=== PATIENT | male | born 1945 | race Caucasian/White ===

== ENCOUNTER 2016-08-21 08:09 | Day surgery (SDC) | payer BC, MEDICARE, OTHER ==
[2016-08-21] MEDS ORDERED: Sodium Chloride 0.9% 1,000 ML IV SCH (09:00)
[2016-08-21] MEDS ORDERED: Propofol 200 MG/20 ML SDV ONE (09:23)
[2016-08-21] MEDS ORDERED: Midazolam 1 MG/ML 2 ML SDV ONE (09:23)
[2016-08-21] MEDS ORDERED: fentaNYL 100 MCG/2 ML SDV ONE (09:23)
[2016-08-21 11:26] VITALS: BP 131/71
--- NOTE | 2016-08-21 11:44 | OR ---
DATE OF PROCEDURE: 08/21/2016 PROCEDURE: Colonoscopy. FINDINGS: 1. Significant narrowing of the anastomosis at the previous colon resection. 2. Rectal polyp. COMPLICATION: None. CUSTOMER AGENT: None. ANESTHESIA: MAC. RISKS: Risks, benefits, alternatives, limitations including, but not limited to infection, bleeding, and perforation were explained to the patient. SIGNIFICANT FINDINGS: Narrowing of the previous anastomotic site with an inability to advance the scope past this is due to narrowing. PROCEDURE IN DETAIL: The patient was placed in left lateral decubitus position. Digital rectal exam was performed without abnormality. The scope was introduced and advanced. The patient was noted that the previous anastomotic site to have stricturing or narrowing of the anastomotic site. This was biopsied x6. The scope was unable to be advanced through this due to concern of perforation. This did not appear to be a functioning obstruction as there was no stool noted proximal to the anastomosis. The scope was brought back and retroflexed in the rectum. There was a 5 mm polyp which was identified and completely removed. The patient and I will have a discussion about stenting versus observation of this once he awakes from anesthesia. Aleksandr Kaminski MD /[id number]
== END 2016-08-21 11:15 | disposition home or self-care (01) ==
LOC: JP.SDS 08:09
PROVIDERS: ATTEND Surgery
DX: Z12.11 Encounter for screening for malignant neoplasm of colon (principal); K52.9 Noninfective gastroenteritis and colitis, unspecified; K62.1 Rectal polyp; I25.10 Atherosclerotic heart disease of native coronary artery without angina pectoris; K21.9 Gastro-esophageal reflux disease without esophagitis; Z90.49 Acquired absence of other specified parts of digestive tract; Z95.1 Presence of aortocoronary bypass graft; Z79.899 Other long term (current) drug therapy; Z88.8 Allergy status to other drugs, medicaments and biological substances; Z88.5 Allergy status to narcotic agent
CPT/HCPCS: 45380; 88305; J2250; J2704; J3010; J7040

== ENCOUNTER 2016-09-03 03:57 | Inpatient (IN) | payer MEDICARE, BC ==
[2016-09-03] MEDS ORDERED: HYDROmorphone 0.5 MG/0.5 ML Syringe IVPUSH ONE ×2 (04:31→05:00)
--- NOTE | 2016-09-03 04:39 | EDM.PDOC ---
<Obed Orellana - Last Filed: 09/03/16 06:26> ED HPI GENERAL MEDICAL PROBLEM - General Chief Complaint: Abdominal Pain Stated Complaint: ABD PAIN Time Seen by Provider: 09/03/16 04:15 Source of Information: Reports: Patient, Family History Limitations: Reports: No Limitations - History of Present Illness INITIAL COMMENTS - FREE TEXT/NARRATIVE: 71-year-old male with a history of a partial colectomy due to an intra- abdominal abscess has developed sharp cramping abdominal pain over the last 24 hours. He had 4 hours of pain last night that seemed to resolve but then it returned and woke him up at 3:00 AM. No nausea or vomiting. Most of the pain is across the upper abdomen, at times in the right lower quadrant and at times felt like across the back. He feels like his abdomen is somewhat distended. No chest pain or shortness of breath. He had a colonoscopy earlier this year and the surgeon was unable to complete the scoping because of a narrowing at the anastomosis Location: Reports: Abdomen Quality: Reports: Pressure, Sharp Severity: Moderate Improves with: Reports: None Worsens with: Reports: None Associated Symptoms: Denies: Confusion, Chest Pain, Fever/Chills, Shortness of Breath, Weakness abdominal pain Pain Score (Numeric/FACES): 10 - Related Data Allergies Allergy/AdvReac Type Severity Reaction Status Date / Time Iodinated Contrast Media - Allergy Severe Syncope Verified 09/03/16 05:27 Oral and [Iodinated Contrast Media - IV Dye] codeine Allergy Intermediate Abdominal Verified 09/03/16 05:27 Pain atorvastatin [From Lipitor] Allergy Cannot Verified 09/03/16 05:27 Remember simvastatin Allergy Cannot Verified 09/03/16 05:27 Remember Home Meds: Home Meds Metoprolol Tartrate 50 mg PO DAILY 05/01/13 [History] Ranitidine HCl [Zantac] 150 mg PO BID 05/01/13 [History] Tamsulosin [Tamsulosin 24 Hr] 0.4 mg PO BID 05/01/13 [History] cycloSPORINE [Restasis] 1 each EYEBOTH BID 05/01/13 [History] Aspirin [Adult Low Dose Aspirin EC] 81 mg PO DAILY 08/20/16 [History] Ibuprofen 200 mg PO Q6HR PRN 08/20/16 [History] Rosuvastatin Calcium 40 mg PO DAILY 08/20/16 [History] Ubidecarenone [Coenzyme Q-10] 200 mg PO DAILY 08/20/16 [History] Past Medical History HEENT History: Reports: Cataract, Hard of Hearing, Impaired Vision, Other (See Below) Other HEENT History: Severe dye eye syndrome Cardiovascular History: Reports: Aneurysm, Bypass, CAD, Heart Murmur, High Cholesterol, Hypertension Gastrointestinal History: Reports: GERD, Hemorrhoids Genitourinary History: Reports: BPH Musculoskeletal History: Reports: Back Pain, Chronic, Osteoarthritis Neurological History: Reports: Concussion, Headaches, Chronic - Infectious Disease History Infectious Disease History: Reports: Chicken Pox, Measles - Past Surgical History HEENT Surgical History: Reports: Cataract Surgery, Tonsillectomy Cardiovascular Surgical History: Reports: Aneurysm, Coronary Artery Bypass GI Surgical History: Reports: Colonoscopy, EGD, Hernia, Inguinal, Other (See Below) Other GI Surgeries/Procedures: bowel removed due to abscess Male Surgical History: Reports: None Social & Family History - Tobacco Use Smoking Status *Q: Never Smoker Years of Tobacco use: 15 Packs/Tins Daily: 1 Used Tobacco, but Quit: Yes Month Tobacco Last Used: 2001 Second Hand Smoke Exposure: No - Caffeine Use Caffeine Use: Reports: Coffee, Soda - Alcohol Use Days Per Week of Alcohol Use: 0 - Recreational Drug Use Recreational Drug Use: No ED ROS GENERAL - Review of Systems Review Of Systems: See Below Constitutional: Denies: Fever, Chills Respiratory: Denies: Shortness of Breath, Cough Cardiovascular: Denies: Chest Pain GI/Abdominal: Reports: Abdominal Pain, Nausea. Denies: Diarrhea, Vomiting : Reports: No Symptoms Skin: Reports: No Symptoms Neurological: Reports: No Symptoms Psychiatric: Reports: Anxiety ED EXAM, GI/ABD - Physical Exam Exam: See Below Exam Limited By: No Limitations General Appearance: Alert, Anxious, Moderate Distress Eyes: Bilateral: Normal Appearance (No jaundice) Respiratory/Chest: No Respiratory Distress, Lungs Clear Cardiovascular: Regular Rate, Rhythm GI/Abdominal: Normal Bowel Sounds (Bowel sounds are present and sound normal), Guarding (He is guarding in the right lower quadrant) Extremities: Normal Inspection (There may be just a trace of lower extremity edema, symmetric) Neurological: Alert, Oriented Psychiatric: Anxious Skin Exam: Warm, Dry Course - Vital Signs Last Recorded V/S: Last Vital Signs Temp 97.2 F 09/03/16 06:22 Pulse 59 L 09/03/16 06:22 Resp 17 09/03/16 06:22 BP 169/66 H 09/03/16 06:22 Pulse Ox 94 L 09/03/16 06:22 - Orders/Labs/Meds Orders: Active Orders 24 hr Category Date Time Status Abdomen Ltd [US] Stat Exams 09/03/16 06:28 Ordered Abdomen Pelvis wo Cont [CT] Stat Exams 09/03/16 04:32 Taken Ampicillin/Sulbactam Na [Unasyn] 3 gm Med 09/03/16 07:53 Ordered Sodium Chloride 0.9% [Normal Saline] 100 ml IV ONETIME Sodium Chloride 0.9% [Normal Saline] 1,000 ml Med 09/03/16 04:45 Active IV ASDIRECTED Medication Orders Sodium Chloride (Normal Saline) 1,000 mls @ 250 mls/hr IV ASDIRECTED RHETT Last Admin: 09/03/16 04:37 Dose: 250 mls/hr Ampicillin Sodium/Sulbactam (Sodium 3 gm/ Sodium Chloride) 100 mls @ 200 mls/ hr IV ONETIME ONE Stop: 09/03/16 08:22 Labs: Laboratory Tests 09/03/16 09/03/16 Range/Units 04:20 04:20 WBC 9.8 (4.5-11.0) K/uL RBC 5.35 (4.30-5.90) M/uL Hgb 15.9 H D (12.0-15.0) g/dL Hct 46.3 (40.0-54.0) % MCV 87 (80-98) fL MCH 30 (27-31) pg MCHC 34 (32-36) % Plt Count 196 (150-400) K/uL Neut % (Auto) 69 H (36-66) % Lymph % (Auto) 21 L (24-44) % Jewell % (Auto) 8 H (2-6) % Eos % (Auto) 1 L (2-4) % Baso % (Auto) 1 (0-1) % Sodium 140 (140-148) mmol/L Potassium 4.1 (3.6-5.2) mmol/L Chloride 105 (100-108) mmol/L Carbon Dioxide 23 (21-32) mmol/L Anion Gap 11.6 (5.0-14.0) mmol/L BUN 18 D (7-18) mg/dL Creatinine 1.0 (0.8-1.3) mg/dL Est Cr Clr Drug Dosing 68.94 mL/min Estimated GFR (MDRD) > 60 (>60) Glucose 135 H (74-106) mg/dL Calcium 8.5 (8.5-10.1) mg/dL Total Bilirubin 0.5 (0.2-1.0) mg/dL AST 22 (15-37) U/L ALT 35 (12-78) U/L Alkaline Phosphatase 70 (46-116) U/L Total Protein 7.1 (6.4-8.2) g/dL Albumin 3.5 (3.4-5.0) g/dL Globulin 3.6 H (2.3-3.5) g/dL Albumin/Globulin Ratio 1.0 L (1.2-2.2) Amylase 86 (25-115) U/L Lipase 150 (73-393) U/L Meds: Medications Generic Name Dose Route Start Last Admin Trade Name Freq PRN Reason Stop Dose Admin Sodium Chloride 1,000 mls @ 250 mls/hr 09/03/16 04:45 09/03/16 04:37 Normal Saline IV 250 mls/hr ASDIRECTED RHETT Administration Ampicillin Sodium/Sulbactam 100 mls @ 200 mls/hr 09/03/16 07:53 Sodium 3 gm/ Sodium Chloride IV 09/03/16 08:22 ONETIME ONE Discontinued Medications Generic Name Dose Route Start Last Admin Trade Name Freq PRN Reason Stop Dose Admin Hydromorphone HCl 0.5 mg 09/03/16 04:31 09/03/16 04:40 Dilaudid IVPUSH 09/03/16 04:32 0.5 mg ONETIME ONE Administration Hydromorphone HCl 0.5 mg 09/03/16 05:00 09/03/16 05:08 Dilaudid IVPUSH 09/03/16 05:01 0.5 mg ONETIME ONE Administration Hydromorphone HCl 1 mg 09/03/16 07:04 09/03/16 07:08 Dilaudid IVPUSH 09/03/16 07:05 1 mg ONETIME ONE Administration Ondansetron HCl 4 mg 09/03/16 05:01 09/03/16 05:05 Zofran IVPUSH 09/03/16 05:02 4 mg ONETIME ONE Administration - Re-Assessments/Exams Free Text/Narrative Re-Assessment/Exam: 09/03/16 04:38 An IV was started and the patient was given 0.5 mg of Dilaudid. A CBC, CMP, amylase and lipase were obtained and the patient was put through a CT of the abdomen and pelvis with no contrast because of his allergy. 09/03/16 06:02 Labs were reassuring, a second 0.5 mg of Dilaudid was needed for pain control. CT scan confirmed a dilated cecum which correlates with his pain and also a partially calcified gallbladder stone. Dr. Abebe was consulted to review the CT scan and the patient's surgical history to consider a partial bowel obstruction of the colon. 09/03/16 06:26 A gallbladder ultrasound will be obtained prior to making a decision on treatment. Care was turned over to Dr. Montana pending result. Departure - Departure Disposition: Admitted As Inpatient 65 Clinical Impression: Cholecystitis - Discharge Information Forms: ED Department Discharge - My Orders Last 24 Hours: My Active Orders 09/03/16 07:53 Ampicillin/Sulbactam Na [Unasyn] 3 gm Sodium Chloride 0.9% [Normal Saline] 100 ml IV ONETIME - Assessment/Plan Last 24 Hours: My Active Orders 09/03/16 07:53 Ampicillin/Sulbactam Na [Unasyn] 3 gm Sodium Chloride 0.9% [Normal Saline] 100 ml IV ONETIME <Loy Montana - Last Filed: 09/03/16 08:04> Departure - Departure Time of Disposition: 08:04 Condition: good - Assessment/Plan Plan: Assessment Acuity = acute Site and laterality = acute cholecystitis complicated patient with known history of hypertension dyslipidemia Etiology = secondary to a gallstone in the neck of the gallbladder Manifestations = pain Location of injury = home Lab values = CBC, CMP unremarkable CT scan did demonstrate a stone in the neck of the gallbladder as well as dilated cecum followup ultrasound showed enlarged gallbladder 11 mm with a wall thickness of 4.3 mm positive Montaño's sign and stone in the neck of the gallbladder Plan Discuss case Dr. Abebe general surgery he agreed to evaluate the patient in the emergency department for admission Patient was in agreement with the plan all questions were answered, This note was dictated using [employer] voice recognition software please call with any questions.
[2016-09-03] MEDS ORDERED: Sodium Chloride 0.9% 1,000 ML IV SCH (04:45)
[2016-09-03] MEDS ORDERED: Ondansetron 4 MG/2 ML SDV IVPUSH ONE (05:01)
[2016-09-03] MEDS ORDERED: HYDROmorphone 1 MG/ML Syringe IVPUSH ONE (07:04)
[2016-09-03] MEDS ORDERED: Ampicillin/Sulbactam Na 3 GM in Sodium Chloride 0.9% 100 ML IV ONE (07:53)
--- NOTE | 2016-09-03 08:38 | US ---
Abdomen Ltd HISTORY: abdominal pain FINDINGS: The liver appears within normal limits in size and echogenicity with no focal parenchymal abnormalit y identified. There is limited visualization left lobe of the liver. Gallbladder measures 11.5 cm in length. There is an approximately 1 cm diameter echogenic also in the neck of the gallbladder. This does not move with change in patient position. Sonographic Montaño sign is positive. The patient is tender to palpation of the gallbladder. Gallbladder wall is mildly thickened measuring 4.3 mm. No pe richolecystic fluid is seen. Common bile duct is borderline prominent measuring 7.4 mm in diameter. The pancreas is obscured by bowel gas and could not be imaged. Right kidney is within normal limits in size and echogenicity with no mass or hydronephrosis. The right kidney measures 11.2 cm in length . There is an anechoic cyst mid right kidney measuring 1 cm in diameter. Inferior vena cava is obscu red by bowel gas. Normal hepatopedal flow is seen in the portal vein. IMPRESSION: 1. Cholelithiasis. A single gallstone can be seen in the neck of the gallbladder. Gallbladder wall i s mildly thickened and sonographic Montaño sign is positive. Recommend clinical correlation for signs of acute cholecystitis. Common bile duct is mildly dilated measuring 7.4 mm in diameter. 2. No other sonographic abnormality of the right upper quadrant is identified. Small right renal cys t is noted. Pancreas, inferior vena cava, and portions of the left lobe of the liver are obscured by bowel gas.
[2016-09-03] MEDS ORDERED: HYDROmorphone/Normal Saline 15 MG/30 ML PCA IV PRN (09:05)
[2016-09-03] MEDS ORDERED: Naloxone 0.4 MG/ML SDV IV PRN (09:05)
[2016-09-03] MEDS ORDERED: Ondansetron 4 MG/2 ML SDV IVPUSH PRN (09:09)
[2016-09-03] MEDS: Pantoprazole 40 MG Vial IV SCH (10:47)
[2016-09-03] MEDS: Ampicillin/Sulbactam Na 3 GM in Sodium Chloride 0.9% 100 ML IV SCH ×2 (14:05→20:08)
[2016-09-03] MEDS: Dextrose 5%-Lactated Ringers 1,000 ML IV SCH (19:43)
[2016-09-03] MEDS: cycloSPORINE Ophth Drops U/D Box of 30 EYEBOTH SCH (20:21)
[2016-09-03] MEDS: Tamsulosin 0.4 MG Cap.ER PO SCH (20:21)
[2016-09-04] MEDS: Ampicillin/Sulbactam Na 3 GM in Sodium Chloride 0.9% 100 ML IV SCH ×4 (02:04→20:25)
[2016-09-04] MEDS ORDERED: Bupivacaine 0.5%/EPINEPHrine 1:200,000 50 ML MDV ONE (06:50)
[2016-09-04] MEDS: Dextrose 5%-Lactated Ringers 1,000 ML IV SCH ×3 (07:10→20:25)
[2016-09-04] MEDS ORDERED: Propofol 200 MG/20 ML SDV ONE (07:13)
[2016-09-04] MEDS ORDERED: Ondansetron 4 MG/2 ML SDV ONE (07:13)
[2016-09-04] MEDS ORDERED: Rocuronium 50 MG/5 ML Vial ONE (07:13)
[2016-09-04] MEDS ORDERED: Succinylcholine/Normal Saline 200 MG/10 ML Syringe ONE (07:13)
[2016-09-04] MEDS ORDERED: Neostigmine Methylsulfate 1 MG/ML 5 ML Syringe ONE (07:13)
[2016-09-04] MEDS ORDERED: fentaNYL 250 MCG/5 ML SDV ONE (07:13)
[2016-09-04] MEDS ORDERED: Dexamethasone 4 MG/ML SDV ONE (07:13)
[2016-09-04] MEDS ORDERED: Metoprolol Tartrate 50 MG Tab PO SCH (09:00)
[2016-09-04] MEDS: cycloSPORINE Ophth Drops U/D Box of 30 EYEBOTH SCH ×2 (10:47→21:40)
[2016-09-04] MEDS: Pantoprazole 40 MG Vial IV SCH (10:52)
--- NOTE | 2016-09-04 11:54 | PN ---
DATE OF SERVICE: 09/04/2016 SUBJECTIVE: Aleksandr is n.p.o. He will be having a laparoscopic cholecystectomy around 8 o'clock this morning. He has no questions. His consents are signed. 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 OBJECTIVE: GENERAL: Aleksandr Grey is a 71-year-old male. He is alert and orientated. VITAL SIGNS: TPR is 99.9, 74, 16. Blood pressure is 154/68. HEENT: Negative. NECK: Supple. HEART: Regular rate and rhythm. LUNGS: Clear. ABDOMEN: Tenderness in the right upper quadrant to palpation. EXTREMITIES: SCDs are on and there is no peripheral edema. ASSESSMENT: Acute cholecystitis. PLAN: Orders to be written postoperatively. Janet Clemente PA-C /[id number]
[2016-09-04] MEDS: Magnesium Sulfate/Water 2 GM in Premix Bag 1 BAG IV SCH ×2 (16:37→21:42)
[2016-09-04] MEDS: Acetaminophen/HYDROcodone 325-5 MG Tab PO PRN ×2 (16:50→21:39)
[2016-09-04] MEDS ORDERED: Lidocaine 2% Jelly 10 ML Urojet MUCMEM ONE (18:48)
[2016-09-04] MEDS ORDERED: Lidocaine 2% Jelly 10 ML Urojet ONE (18:48)
[2016-09-04] MEDS: Tamsulosin 0.4 MG Cap.ER PO SCH (21:40)
[2016-09-05] MEDS: Ampicillin/Sulbactam Na 3 GM in Sodium Chloride 0.9% 100 ML IV SCH ×4 (02:42→19:56)
[2016-09-05] MEDS: Acetaminophen/HYDROcodone 325-5 MG Tab PO PRN ×5 (02:51→23:30)
[2016-09-05] MEDS: Magnesium Sulfate/Water 2 GM in Premix Bag 1 BAG IV SCH ×4 (02:54→21:05)
--- NOTE | 2016-09-05 08:44 | PN ---
DATE OF SERVICE: 09/05/2016 SUBJECTIVE: Aleksandr is postop day #1. He states his pain is controlled. He did have difficulty urinating last night and had a Bullock catheter placed in. KAY drain put out 90 mL of a pink serosanguineous drainage. REVIEW OF SYSTEMS: Remainder of review of systems negative for any pertinent positives and negatives. OBJECTIVE: GENERAL: Aleksandr Grey is a 71-year-old male. Alert and orientated. SKIN: Warm and dry. Color is good. VITAL SIGNS: TPR 97, 56, 16, blood pressure 129/65. HEENT: Negative. NECK: Supple. HEART: Regular rate and rhythm. LUNGS: Clear. ABDOMEN: Dressings dry and intact. Abdominal binder is on. KAY drain intact and draining a light pink serous drainage. EXTREMITIES: SCDs are on and no peripheral edema. ASSESSMENT: Laparoscopic cholecystectomy, drainage of abscess, and excision of peritoneal nodule for acute cholecystitis with pericholecystic abscess, and peritoneal nodule. Date of surgery, 09/04/2016. PLAN: 1. Increase Flomax 0.4 mg to b.i.d. 2. Discontinue Bullock in a.m., 09/06/2016, at 0500 hours. 3. Crestor (rosuvastatin calcium) 40 mg p.o. daily. 4. Good pulmonary toilet encouraged. 5. We will evaluate p.r.n. or in a.m. Janet Clemente PA-C /[id number]
[2016-09-05] MEDS: Dextrose 5%-Lactated Ringers 1,000 ML IV SCH ×2 (09:05→19:55)
[2016-09-05] MEDS: Rosuvastatin 10 MG Tab PO SCH (09:08)
[2016-09-05] MEDS: cycloSPORINE Ophth Drops U/D Box of 30 EYEBOTH SCH ×2 (09:09→20:03)
[2016-09-05] MEDS: Tamsulosin 0.4 MG Cap.ER PO SCH ×2 (09:09→17:10)
[2016-09-05] MEDS: Metoprolol Succinate 50 MG Tab.ER PO SCH (09:11)
[2016-09-05] MEDS: Pantoprazole 40 MG Tab.CR PO SCH (12:02)
[2016-09-05] MEDS ORDERED: Magnesium Hydroxide 400 MG/5 ML Susp 30 ML Cup PO ONE (17:00)
[2016-09-05] MEDS: Bisacodyl 5 MG Tab PO SCH (20:03)
[2016-09-06] MEDS: Ampicillin/Sulbactam Na 3 GM in Sodium Chloride 0.9% 100 ML IV SCH ×2 (02:55→10:03)
[2016-09-06] MEDS: Magnesium Sulfate/Water 2 GM in Premix Bag 1 BAG IV SCH ×2 (04:05→10:04)
[2016-09-06] MEDS: Pantoprazole 40 MG Tab.CR PO SCH (07:41)
[2016-09-06] MEDS: Tamsulosin 0.4 MG Cap.ER PO SCH (07:41)
[2016-09-06] MEDS: Acetaminophen/HYDROcodone 325-5 MG Tab PO PRN ×2 (07:42→12:32)
[2016-09-06] MEDS: Rosuvastatin 10 MG Tab PO SCH (10:04)
[2016-09-06] MEDS: cycloSPORINE Ophth Drops U/D Box of 30 EYEBOTH SCH (10:06)
[2016-09-06] MEDS: Bisacodyl 5 MG Tab PO SCH (10:07)
[2016-09-06] MEDS: Metoprolol Succinate 50 MG Tab.ER PO SCH (10:08)
[2016-09-06 11:49] VITALS: BP 150/76
--- NOTE | 2016-09-07 12:35 | DISCH ---
FINAL DIAGNOSES: 1. Acute cholecystitis with pericholecystic abscess. 2. Peritoneal nodule on surface of caudate lobe of liver. 3. Postoperative urinary retention. 4. History of coronary artery disease, stable. 5. History of hyperlipidemia. OPERATIVE PROCEDURE: Laparoscopic cholecystectomy with drainage of pericholecystic abscess and excision of peritoneal nodule on surface of liver, it was done on 09/04. SUMMARY: This is a 71-year-old male presenting with acute abdominal pain. Workup revealed a thick-walled gallbladder with positive endoscopic Montaño sign and a stone lodged in the gallbladder neck. The patient was admitted on admission and IV antibiotics and subsequently underwent the above-noted procedure on 09/04. Postoperatively, he did retain urine. We have given him some additional dose of Flomax which he is normally on, and the Bullcok catheter has been removed this morning. If he is unable to urinate, we will replace the Bullock catheter and have him discharged today as well and have removal of Bullock catheter this coming Thursday should that need to be placed. This happened after his colon resection previously as well. Otherwise, the abscess showed multiple white cells, but no bacteria, and given this, he did not probably receive enough IV antibiotics. The KAY drain will be removed and be discharged on his usual home medications plus Bloomery 5/325 mg 1 or 2 tabs q.4 hours p.r.n. pain, #40, and follow up with Dr. Abebe this coming Thursday at [facility] at 9:00 a.m.
--- NOTE | 2016-09-09 12:03 | OR ---
DATE OF PROCEDURE: 09/04/2016 PREOPERATIVE DIAGNOSIS: Acute cholecystitis. POSTOPERATIVE DIAGNOSES: 1. Acute cholecystitis with pericholecystic abscess. 2. Peritoneal nodule on the surface of quadrate lower lobe liver. OPERATIVE PROCEDURE: 1. Laparoscopic cholecystectomy (13837). 2. Drainage of pericholecystic abscess (16029). 3. Excision of peritoneal nodule over the surface of the quadrate lower lobe of liver. ANESTHESIA: General. DOUBLE BACK OPERATOR: Janet Clemente PA-C INDICATIONS FOR PROCEDURE: This is a 71-year-old presenting with what on workup appears to be consistent with an acute cholecystitis. Plan is to proceed with laparoscopic or if necessary open cholecystectomy. The procedure is as indicated. Potential risks including bleeding, infection, injury to the underlying viscera, possible migration of stones in the common bile duct requiring additional procedures as well as remote possibility of cardiopulmonary, septic, or hemorrhagic complications leading to were discussed, and the patient wishes to proceed. DETAILS OF PROCEDURE: The patient was taken to the operating room. After general endotracheal anesthesia was induced, the abdomen was prepped and draped. Given the patient's previous lower midline incision extending up to the umbilicus, a transverse incision was made just to the right of the umbilicus and retracted upward with the peritoneal cavity being entered with an Optiview trocar. This was performed in this area to avoid potential adhesions underneath the subumbilical area. Upon placement of the trocar, the peritoneal cavity was inflated to 15 mmHg pressure with CO2 and laparoscope reinserted. No underlying trocar insertion site injuries were seen. Following this, a 12 mm epigastric trocar was placed along with a 5 mm right upper quadrant trocar. The gallbladder was noted to be intensely inflamed, being reddened purplish and tensely distended and edematous. As the gallbladder was retracted upward, an area of purulence was noted posterior to it. Cultures of this were obtained as the area of the pericholecystic abscess was evacuated. The patient was also noted to have a peritoneal nodule over the surface of the quadrate lobe of the liver. This was frondlike bit of tissue. This was then excised more or less with an endoscope clamp acting as a biopsy forceps, pulling this off the surface of the liver. Minimal bleeding from the biopsy site was controlled with electrocautery and the specimen which measured 1-2 mm when it was delivered from the field. At this point, the gallbladder was opened to evacuate its contents. The patient had a smaller bile present within the gallbladder with most of the bile was clear indicating a relatively longstanding obstruction of the cystic duct. DICTATION ENDS HERE. Gerald Abebe MD /[id number]
== END 2016-09-06 13:50 | disposition home or self-care (01) | DRG 419 ==
LOC: JP.ED 03:57 → JP.MS 08:16
PROVIDERS: ADMIT Surgery; ATTEND Surgery
PROC: 0W9G4ZX Drainage of Peritoneal Cavity, Percutaneous Endoscopic Approach, Diagnostic (ICD-10-PCS; principal; 2016-09-04)
PROC: 0FB14ZX Excision of Right Lobe Liver, Percutaneous Endoscopic Approach, Diagnostic (ICD-10-PCS; principal; 2016-09-04)
PROC: 0FT44ZZ Resection of Gallbladder, Percutaneous Endoscopic Approach (ICD-10-PCS; principal; 2016-09-04)
DX: K81.0 Acute cholecystitis (principal); K76.89 Other specified diseases of liver; I25.10 Atherosclerotic heart disease of native coronary artery without angina pectoris; N40.0 Benign prostatic hyperplasia without lower urinary tract symptoms; M54.9 Dorsalgia, unspecified; G89.29 Other chronic pain; Z95.1 Presence of aortocoronary bypass graft; H91.90 Unspecified hearing loss, unspecified ear; H54.7 Unspecified visual loss; Z90.49 Acquired absence of other specified parts of digestive tract; Z88.2 Allergy status to sulfonamides; Z91.041 Radiographic dye allergy status; Z88.5 Allergy status to narcotic agent; Z88.8 Allergy status to other drugs, medicaments and biological substances; Z87.891 Personal history of nicotine dependence; I10 Essential (primary) hypertension; R33.8 Other retention of urine; E78.5 Hyperlipidemia, unspecified
CPT/HCPCS: 36415; 74176; 76705 ×2; 80053; 82150; 83690; 85025; 96361; 96365; 96375; 96376; 99284; 99285; J0295; J1170 ×3; J2405; J7030; J7040; 82247; 83735; 84075; 84100; 85027; 87070; 87075; 87205; 88304; 88305; 94762; A9270-GY; C9113; J1100; J2704; J3010; J3475; J7042

== ENCOUNTER 2018-07-15 08:29 | Emergency (ER) | payer MEDICARE, BC ==
[2018-07-15] MEDS ORDERED: Aspirin 81 MG Tab.Chew PO ONE (08:41)
--- NOTE | 2018-07-15 08:42 | EDM.PDOC ---
ED HPI GENERAL MEDICAL PROBLEM - General Chief Complaint: Chest Pain Stated Complaint: CHEST PAINS Time Seen by Provider: 07/15/18 08:41 Source of Information: Reports: Patient History Limitations: Reports: No Limitations - History of Present Illness INITIAL COMMENTS - FREE TEXT/NARRATIVE: ptarrived with pain in the left axilla and some tingling in his left arm.. He was mildly sob. He sates the level of pain was a 2-3. Onset: Today, Other ( started at 7 am. He thinks it woke him up. ) Duration: Hour(s): Location: Reports: Chest, Other (pain was in the left axilla. ) Associated Symptoms: Reports: Chest Pain Treatments CHIEF ACCOUNTANT: Reports: Aspirin Left Chest Pain Score (Numeric/FACES): 2 - Related Data Allergies Allergy/AdvReac Type Severity Reaction Status Date / Time Iodinated Contrast- Oral and Allergy Severe Syncope Verified 07/15/18 08:41 IV Dye [Iodinated Contrast Media - IV Dye] codeine Allergy Intermediate Abdominal Verified 07/15/18 08:41 Pain atorvastatin [From Lipitor] Allergy Cannot Verified 07/15/18 08:41 Remember simvastatin Allergy Cannot Verified 07/15/18 08:41 Remember Home Meds: Home Meds Ranitidine HCl [Zantac] 150 mg PO BID 05/01/13 [History] Tamsulosin [Tamsulosin 24 Hr] 0.4 mg PO BID 05/01/13 [History] Aspirin [Adult Low Dose Aspirin EC] 81 mg PO DAILY 08/20/16 [History] Ibuprofen 200 mg PO Q6HR PRN 08/20/16 [History] Rosuvastatin Calcium 40 mg PO DAILY 08/20/16 [History] Ubidecarenone [Coenzyme Q-10] 200 mg PO DAILY 08/20/16 [History] Metoprolol Succinate [Toprol XL] 50 mg PO DAILY 09/04/16 [History] Carboxymethylcellulose Sodium [Thera Tears] 1 drop EYEBOTH QID PRN 07/15/18 [ History] Lisinopril 10 mg PO DAILY 07/15/18 [History] Past Medical History HEENT History: Reports: Cataract, Hard of Hearing, Impaired Vision, Other (See Below) Other HEENT History: Severe dye eye syndrome Cardiovascular History: Reports: Aneurysm, Bypass, CAD, Heart Murmur, High Cholesterol, Hypertension Gastrointestinal History: Reports: GERD, Hemorrhoids Genitourinary History: Reports: BPH Musculoskeletal History: Reports: Back Pain, Chronic, Osteoarthritis Neurological History: Reports: Concussion, Headaches, Chronic Psychiatric History: Reports: Addiction, Other (See Below) Other Psychiatric History: alcoholism - Infectious Disease History Infectious Disease History: Reports: Chicken Pox, Measles - Past Surgical History HEENT Surgical History: Reports: Cataract Surgery, Tonsillectomy Cardiovascular Surgical History: Reports: Aneurysm, Coronary Artery Bypass GI Surgical History: Reports: Colonoscopy, EGD, Hernia, Inguinal, Other (See Below) Other GI Surgeries/Procedures: bowel removed due to abscess Male Surgical History: Reports: None Social & Family History - Family History Family Medical History: Noncontributory - Caffeine Use Caffeine Use: Reports: Soda Caffeine Use Comment: rare use ED ROS GENERAL - Review of Systems Review Of Systems: See Below Constitutional: Reports: No Symptoms HEENT: Reports: No Symptoms Respiratory: Reports: No Symptoms Cardiovascular: Reports: Chest Pain, Other (pain in the left axilla. ) Endocrine: Reports: No Symptoms GI/Abdominal: Reports: No Symptoms : Reports: No Symptoms Musculoskeletal: Reports: Other (Pt has been chipping ice around the house because it is so slippery. ) Skin: Reports: No Symptoms Neurological: Reports: No Symptoms ED EXAM, GENERAL - Physical Exam Exam: See Below Free Text/Narrative:: pt arrived with pain in the left axilla and some numbness down the left arm. Exam Limited By: No Limitations General Appearance: Alert, Mild Distress Ears: Normal TMs Nose: Normal Inspection Throat/Mouth: Normal Inspection Head: Atraumatic Neck: Normal Inspection Respiratory/Chest: No Respiratory Distress Cardiovascular: Regular Rate, Rhythm GI/Abdominal: Soft, Non-Tender (Male) Exam: Deferred Rectal (Males) Exam: Deferred Back Exam: Normal Inspection Extremities: Normal Inspection Neurological: Alert, Oriented, Normal Cognition Psychiatric: Normal Affect Course - Vital Signs Last Recorded V/S: Last Vital Signs Temp 35.8 C 07/15/18 08:38 Pulse 62 07/15/18 08:38 Resp 14 07/15/18 10:47 BP 131/61 07/15/18 10:47 Pulse Ox 94 L 07/15/18 10:47 - Orders/Labs/Meds Orders: Active Orders 24 hr Category Date Time Status EKG Documentation Completion [RC] ASDIRECTED Care 07/15/18 08:36 Active EKG 12 Lead [EK] Routine Ther 07/15/18 08:36 Ordered Labs: Laboratory Tests 07/15/18 07/15/18 07/15/18 Range/Units 08:46 08:46 08:46 WBC 5.8 (4.5-11.0) K/uL RBC 5.25 (4.30-5.90) M/uL Hgb 15.5 H D (12.0-15.0) g/dL Hct 45.8 (40.0-54.0) % MCV 87 (80-98) fL MCH 30 (27-31) pg MCHC 34 (32-36) % Plt Count 199 (150-400) K/uL Neut % (Auto) 60 (36-66) % Lymph % (Auto) 27 (24-44) % [place] % (Auto) 11 H (2-6) % Eos % (Auto) 2 (2-4) % Baso % (Auto) 1 (0-1) % Sodium 138 L (140-148) mmol/L Potassium 4.7 (3.6-5.2) mmol/L Chloride 105 (100-108) mmol/L Carbon Dioxide 25 (21-32) mmol/L Anion Gap 12.7 (5.0-14.0) mmol/L BUN 17 D (7-18) mg/dL Creatinine 1.0 (0.8-1.3) mg/dL Est Cr Clr Drug Dosing 66.92 mL/min Estimated GFR (MDRD) > 60 (>60) Glucose 130 H (74-106) mg/dL Calcium 9.2 D (8.5-10.1) mg/dL Total Bilirubin 0.6 (0.2-1.0) mg/dL AST 25 (15-37) U/L ALT 38 (12-78) U/L Alkaline Phosphatase 69 (46-116) U/L Troponin I 0.028 (0.000-0.056) ng/mL Total Protein 7.2 (6.4-8.2) g/dL Albumin 3.5 (3.4-5.0) g/dL Globulin 3.7 H (2.3-3.5) g/dL Albumin/Globulin Ratio 1.0 L (1.2-2.2) 07/15/18 07/15/18 Range/Units 10:37 13:27 WBC (4.5-11.0) K/uL RBC (4.30-5.90) M/uL Hgb (12.0-15.0) g/dL Hct (40.0-54.0) % MCV (80-98) fL MCH (27-31) pg MCHC (32-36) % Plt Count (150-400) K/uL Neut % (Auto) (36-66) % Lymph % (Auto) (24-44) % [place] % (Auto) (2-6) % Eos % (Auto) (2-4) % Baso % (Auto) (0-1) % Sodium (140-148) mmol/L Potassium (3.6-5.2) mmol/L Chloride (100-108) mmol/L Carbon Dioxide (21-32) mmol/L Anion Gap (5.0-14.0) mmol/L BUN (7-18) mg/dL Creatinine (0.8-1.3) mg/dL Est Cr Clr Drug Dosing mL/min Estimated GFR (MDRD) (>60) Glucose (74-106) mg/dL Calcium (8.5-10.1) mg/dL Total Bilirubin (0.2-1.0) mg/dL AST (15-37) U/L ALT (12-78) U/L Alkaline Phosphatase (46-116) U/L Troponin I 0.035 0.030 (0.000-0.056) ng/mL Total Protein (6.4-8.2) g/dL Albumin (3.4-5.0) g/dL Globulin (2.3-3.5) g/dL Albumin/Globulin Ratio (1.2-2.2) Meds: Medications Discontinued Medications Generic Name Dose Route Start Last Admin Trade Name Freq PRN Reason Stop Dose Admin Aspirin 324 mg 07/15/18 08:41 07/15/18 08:56 Aspirin PO 07/15/18 08:42 162 mg ONETIME ONE Administration - Re-Assessments/Exams Free Text/Narrative Re-Assessment/Exam: 07/15/18 09:28 pt has a trop of .028. He has a chest xray that is unchanged. He is very tender in the left axilla when he is palpated. He is not sob. His wbc is normal. His ekg does not look like acute changes. 07/15/18 14:05 3rd trop went down. At this point this would appear to be a muscle issue causing pain. Departure - Departure Time of Disposition: 14:05 Disposition: Home, Self-Care 01 Condition: Fair Clinical Impression: Chest wall pain Referrals: Blair Laguna MD [Primary Care Provider] - Forms: ED Department Discharge Care Plan Goals: heat to the left chest, motrin 600mg tid as needed for discomfort . Return if increased problems. - My Orders Last 24 Hours: My Active Orders 07/15/18 08:36 EKG Documentation Completion [RC] ASDIRECTED EKG 12 Lead [EK] Routine - Assessment/Plan Last 24 Hours: My Active Orders 07/15/18 08:36 EKG Documentation Completion [RC] ASDIRECTED EKG 12 Lead [EK] Routine
--- NOTE | 2018-07-15 09:44 | CRLCR ---
HISTORY: Chest pain. TECHNIQUE: One view chest. COMPARISON: No prior. FINDINGS: Prior sternotomy. Cardiac size is upper limits of normal accounting for technique. Tortuous and/or dilated thoracic aorta. Linear scarring adjacent to the left heart border. There is no consolidation or definite pulmonary edema. No pneumothorax or pleural effusion. IMPRESSION: 1. Changes of sternotomy. 2. Tortuous and/or dilated thoracic aorta. 3. Linear scarring adjacent to the left heart border. 4. No acute lung infiltrate or pulmonary edema. Dictated by Sherwin Aly MD @ 07/15/2018 9:43:18 AM Dictated by: Sherwin Aly MD @ 07/15/2018 09:43:23 (Electronically Signed)
[2018-07-15 14:24] VITALS: BP 132/62
== END 2018-07-15 14:24 | disposition home or self-care (01) ==
LOC: JP.ED 08:29
DX: R07.89 Other chest pain (principal); E78.00 Pure hypercholesterolemia, unspecified; I10 Essential (primary) hypertension; K21.9 Gastro-esophageal reflux disease without esophagitis; Z91.041 Radiographic dye allergy status; Z95.1 Presence of aortocoronary bypass graft; Z88.5 Allergy status to narcotic agent; Z79.899 Other long term (current) drug therapy
CPT/HCPCS: 36415; 71045; 80053; 84484; 85025; 93005; 93010; 99285-25; A9270-GY

== ENCOUNTER 2018-12-06 08:53 | Emergency (ER) | payer MEDICARE, BC ==
[2018-12-06 09:05] VITALS: BP 140/69; PULSE 60
[2018-12-06] MEDS ORDERED: Meclizine 25 MG Tab PO ONE (09:27)
--- NOTE | 2018-12-06 09:48 | EDM.PDOC ---
ED HPI GENERAL MEDICAL PROBLEM - General Chief Complaint: Neurological Problem Stated Complaint: NAUSEA,DIZZINESS Time Seen by Provider: 12/06/18 09:10 Source of Information: Reports: Patient History Limitations: Reports: No Limitations - History of Present Illness INITIAL COMMENTS - FREE TEXT/NARRATIVE: 73-year-old male who has had several brief episodes of vertigo over the past week woke this morning and had a very persistent. Her vertigo from the time he woke up until the time he got to the hospital, over the course of an hour and a half. It's better if he lies down. He feels like the room is spinning. No headache, fever, joint pains or rash. He is nauseous but not vomiting. No history of trauma. Onset: Sudden (Episode was sudden this morning when he got up to let his dog out ) Duration: Hour(s): (2 hours) Worsens with: Reports: Other (Standing) - Related Data Allergies Allergy/AdvReac Type Severity Reaction Status Date / Time Iodinated Contrast Media Allergy Severe Syncope Verified 12/06/18 09:03 [Iodinated Contrast Media - IV Dye] codeine Allergy Intermediate Abdominal Verified 12/06/18 09:03 Pain atorvastatin [From Lipitor] Allergy Cannot Verified 12/06/18 09:03 Remember simvastatin Allergy Cannot Verified 12/06/18 09:03 Remember Home Meds: Home Meds Ranitidine HCl [Zantac] 150 mg PO BID 05/01/13 [History] Tamsulosin [Tamsulosin 24 Hr] 0.4 mg PO BID 05/01/13 [History] Aspirin [Adult Low Dose Aspirin EC] 81 mg PO DAILY 08/20/16 [History] Ibuprofen 200 mg PO Q6HR PRN 08/20/16 [History] Rosuvastatin Calcium 40 mg PO DAILY 08/20/16 [History] Ubidecarenone [Coenzyme Q-10] 200 mg PO DAILY 08/20/16 [History] Metoprolol Succinate [Toprol XL] 50 mg PO DAILY 09/04/16 [History] Carboxymethylcellulose Sodium [Thera Tears] 1 drop EYEBOTH QID PRN 07/15/18 [ History] Lisinopril 10 mg PO DAILY 07/15/18 [History] Past Medical History HEENT History: Reports: Cataract, Hard of Hearing, Impaired Vision, Other (See Below) Other HEENT History: Severe dye eye syndrome Cardiovascular History: Reports: Aneurysm, Bypass, CAD, Heart Murmur, High Cholesterol, Hypertension Gastrointestinal History: Reports: GERD, Hemorrhoids Genitourinary History: Reports: BPH Musculoskeletal History: Reports: Back Pain, Chronic, Osteoarthritis Neurological History: Reports: Concussion, Headaches, Chronic Psychiatric History: Reports: Addiction, Other (See Below) Other Psychiatric History: alcoholism - Infectious Disease History Infectious Disease History: Reports: Chicken Pox, Measles - Past Surgical History HEENT Surgical History: Reports: Cataract Surgery, Tonsillectomy Cardiovascular Surgical History: Reports: Aneurysm, Coronary Artery Bypass GI Surgical History: Reports: Colonoscopy, EGD, Hernia, Inguinal, Other (See Below) Other GI Surgeries/Procedures: bowel removed due to abscess Social & Family History - Family History Family Medical History: Noncontributory - Tobacco Use Smoking Status *Q: Former Smoker Used Tobacco, but Quit: Yes Month/Year Tobacco Last Used: 1999 - Caffeine Use Caffeine Use: Reports: Coffee Caffeine Use Comment: rare use - Recreational Drug Use Recreational Drug Use: No ED ROS GENERAL - Review of Systems Review Of Systems: See Below Constitutional: Denies: Fever, Chills Respiratory: Denies: Shortness of Breath Cardiovascular: Denies: Chest Pain GI/Abdominal: Reports: Nausea. Denies: Abdominal Pain, Vomiting Neurological: Reports: Paresthesia (Some tingling in his hands and feet prior to coming in) Psychiatric: Reports: Anxiety ED EXAM, NEURO - Physical Exam Exam: See Below Exam Limited By: No Limitations General Appearance: Alert, No Apparent Distress Eye Exam: Bilateral Eye: Normal Inspection (No nystagmus currently) Head Exam: Atraumatic Neck: Supple, Non-Tender. No: Carotid Bruit Respiratory/Chest: No Respiratory Distress, Lungs Clear Cardiovascular: Regular Rate, Rhythm Neurological: Alert, No Motor/Sensory Deficits, Oriented x 3, Other ( Orthostatic blood pressures were checked and were normal but he felt lightheaded and dizzy when standing) Course - Vital Signs Last Recorded V/S: Last Vital Signs Temp 97.1 F 12/06/18 09:04 Pulse 60 12/06/18 09:04 Resp 16 12/06/18 09:04 BP 140/69 12/06/18 09:04 Pulse Ox 96 12/06/18 09:04 Orthostatic Blood Pressure [ 141/67 Standing] Orthostatic Blood Pressure [ 138/64 Sitting] Orthostatic Blood Pressure [ 144/65 Supine] - Orders/Labs/Meds Meds: Medications Discontinued Medications Generic Name Dose Route Start Last Admin Trade Name Bisi PRN Reason Stop Dose Admin Meclizine HCl 25 mg 12/06/18 09:27 12/06/18 09:33 Antivert PO 12/06/18 09:28 25 mg ONETIME ONE Administration - Re-Assessments/Exams Free Text/Narrative Re-Assessment/Exam: 12/06/18 09:47 Patient appears to be having some recurring labyrinthitis issues. He was given 1 dose of meclizine and sent back for a head CT without contrast. 12/06/18 10:[address] was negative and the patient was feeling better by discharge. He ambulated without significant difficulty. He was discharged with extra doses of meclizine, and can recheck at any time if worsening. He should also consider rechecking in 3-4 days if not improving satisfactorily as an MRI or neurology consult may be necessary. Departure - Departure Time of Disposition: 10:27 Disposition: Home, Self-Care 01 Condition: Good Clinical Impression: Vertigo - Discharge Information Instructions: Vertigo, [id number] Referrals: Blair Laguna MD [Primary Care Provider] - Forms: ED Department Discharge Care Plan Goals: Continue any current medications, increase activity as tolerated and use meclizine as directed for persistent dizziness. Consider rechecking in 3-4 days if not improving satisfactorily, or return sooner if worsening as discussed.
--- NOTE | 2018-12-06 10:00 | CT ---
Head wo Cont CLINICAL HISTORY: Vertigo COMPARISON: None TECHNIQUE: Transverse scans were obtained from the base of the skull through the vertex without IV contrast on a multislice, multidetector CT scanner. Auto dosage reduction and iterative reconstruction techniques employed. FINDINGS: No focal abnormal parenchymal density is identified. There is no mass effect, hemorrhage, or extraaxial collection. The basal cisterns and sulci over the convexities are prominent. The ventricles are normal for age. IMPRESSION: Age-related atrophy. No focal lesion, mass effect or hemorrhage
== END 2018-12-06 10:27 | disposition home or self-care (01) ==
LOC: JP.ED 08:53
DX: R42 Dizziness and giddiness (principal); M19.90 Unspecified osteoarthritis, unspecified site; E78.00 Pure hypercholesterolemia, unspecified; Z88.8 Allergy status to other drugs, medicaments and biological substances; Z91.041 Radiographic dye allergy status; Z79.82 Long term (current) use of aspirin; Z79.899 Other long term (current) drug therapy; Z98.890 Other specified postprocedural states; Z87.891 Personal history of nicotine dependence
CPT/HCPCS: 70450; 99284; A9270; 99283

== ENCOUNTER 2021-11-07 09:44 | Emergency (ER) | payer OTHER, MEDICARE, BC ==
[2021-11-07 11:21] LABS: ESTIMATED GFR 88 mL/min (>60)
[2021-11-07 11:31] LABS: TROPONIN I HIGH SENSITIVITY 118.8 pg/mL (<=60.3)
[2021-11-07] MEDS ORDERED: Aspirin 81 MG Tab.Chew PO ONE (11:32)
[2021-11-07] MEDS ORDERED: Heparin Sodium 5,000 Units/ML Vial IVPUSH ONE (11:36)
[2021-11-07] MEDS ORDERED: Ondansetron 4 MG/2 ML SDV IVPUSH ONE (11:36)
[2021-11-07] MEDS ORDERED: Ticagrelor 90 MG Tab PO ONE (11:36)
[2021-11-07] MEDS ORDERED: Morphine 2 MG/ML SYRINGE IVPUSH PRN (11:36)
[2021-11-07] MEDS ORDERED: Heparin Sodium/D5W 25,000 UNITS/500 ML BAG IV SCH (11:45)
[2021-11-07] MEDS ORDERED: Lidocaine 1% 50 ML MDV INJECT ONE (11:57)
[2021-11-07] MEDS: Lidocaine 1% 5 ML VIAL ONE (12:13)
[2021-11-07] MEDS: Nitroglycerin 0.4 MG Tab.SL SL PRN ×3 (12:14→12:34)
[2021-11-07] MEDS ORDERED: Metoprolol Succinate 50 MG Tab.ER PO ONE (12:25)
[2021-11-07] MEDS ORDERED: Nitroglycerin/D5W 25 MG/250 ML BOTTLE IV SCH (13:00)
[2021-11-07 13:19] VITALS: BP 140/63; PULSE 68
[2021-11-08] MEDS: Lidocaine 1% 5 ML VIAL ONE (10:31)
== END 2021-11-07 14:23 ==
LOC: JP.ED 09:44
DX: I21.4 Non-ST elevation (NSTEMI) myocardial infarction (principal); I25.10 Atherosclerotic heart disease of native coronary artery without angina pectoris; Z91.041 Radiographic dye allergy status; Z88.8 Allergy status to other drugs, medicaments and biological substances; Z88.5 Allergy status to narcotic agent; Z79.899 Other long term (current) drug therapy; Z86.73 Personal history of transient ischemic attack (TIA), and cerebral infarction without residual deficits; Z86.16 Personal history of COVID-19; Z90.49 Acquired absence of other specified parts of digestive tract; Z87.891 Personal history of nicotine dependence; Z20.822 Contact with and (suspected) exposure to COVID-19
CPT/HCPCS: 36415; 71045; 80053; 83605; 84484; 85025; 85610; 85730; 87635; 93005; 96365; 96366; 96368; 96375; 99285; A9270; J1644; J2001; J2405; J3490; 93010; 99284; U0002

== ENCOUNTER 2022-11-10 09:06 | Emergency (ER) | payer OTHER, MEDICARE, BC ==
[2022-11-10] MEDS ORDERED: Sodium Chloride 0.9% 10 ML Syringe FLUSH PRN (10:16)
[2022-11-10 10:46] LABS: BASOPHILS ABSOLUTE AUTO 0.05 K/uL (0.00-0.10); BASOPHILS PERCENT AUTO 0.5 % (0.1-1.3); EOSINOPHILS ABSOLUTE AUTO 0.03 K/uL (0.00-0.40); EOSINOPHILS PERCENT AUTO 0.3 % (0.0-5.4); HEMATOCRIT 49.6 % (38.4-49.7); IMMATURE GRAN ABSOLUTE AUTO 0.03 K/uL (0.00-0.23); IMMATURE GRAN PERCENT AUTO 0.3 % (0.0-0.7); LYMPHOCYTES PERCENT AUTO 21.6 % (11.4-47.7); MEAN CORPUSCULAR HGB CONC 34.3 g/dL (31.6-35.5); MEAN CORPUSCULAR VOLUME 87.6 fL (81.4-99.0); MONOCYTES ABSOLUTE AUTO 0.66 K/uL (0.20-0.90); MONOCYTES PERCENT AUTO 7.1 % (3.3-12.6); NEUTROPHILS ABSOLUTE AUTO 6.48 K/uL (1.0-7.6); NEUTROPHILS PERCENT AUTO 70.2 % (40.0-78.1); PLATELET COUNT,PLT 170 K/uL (130-375); RED BLOOD CELL COUNT 5.66 M/uL (4.14-5.76); WHITE BLOOD CELL COUNT,WBC 9.3 K/uL (3.2-11.0)
[2022-11-10 11:08] LABS: INR 1.2; PROTHROMBIN TIME 12.2 sec (9.2-10.6); PTT,PARTIAL THROMBOPLSTIN TIME 27.4 sec (21.8-27.3)
[2022-11-10 11:10] LABS: ANION GAP 15.9 mmol/L (5.0-14.0); CALCIUM 9.2 mg/dL (8.5-10.1); CREATININE 0.8 mg/dL (0.8-1.3); EST CRCL DRUG DOSING (CG) 78.58 mL/min; POTASSIUM,K 3.9 mmol/L (3.6-5.2)
[2022-11-10] MEDS ORDERED: Aspirin 81 MG Tab.Chew PO ONE ×2 (11:21→11:34)
[2022-11-10] MEDS ORDERED: Heparin Sodium 5,000 Units/ML Vial IVPUSH ONE (11:21)
[2022-11-10] MEDS ORDERED: Heparin Sodium/D5W 25,000 UNITS/500 ML BAG IV SCH (11:30)
[2022-11-10 13:10] VITALS: BP 162/70; PULSE 70
== END 2022-11-10 13:46 | disposition home or self-care (01) ==
LOC: JP.ED 09:06
DX: K29.00 Acute gastritis without bleeding (principal); N40.0 Benign prostatic hyperplasia without lower urinary tract symptoms; K21.9 Gastro-esophageal reflux disease without esophagitis; I25.10 Atherosclerotic heart disease of native coronary artery without angina pectoris; E78.00 Pure hypercholesterolemia, unspecified; I10 Essential (primary) hypertension; Z86.73 Personal history of transient ischemic attack (TIA), and cerebral infarction without residual deficits; Z91.041 Radiographic dye allergy status; Z88.5 Allergy status to narcotic agent; Z79.899 Other long term (current) drug therapy; Z86.16 Personal history of COVID-19; Z95.1 Presence of aortocoronary bypass graft
CPT/HCPCS: 36415; 71045; 80048; 84484; 85025; 85379; 85610; 85730; 93005; 99284; A9270; J3490; 93010

== ENCOUNTER 2022-11-21 05:59 | Day surgery (SDC) | payer MEDICARE, BC ==
[2022-11-21] MEDS ORDERED: Lactated Ringers 1,000 ML IV SCH (07:00)
[2022-11-21] MEDS ORDERED: Propofol 200 MG/20 ML SDV ONE (07:18)
[2022-11-21] MEDS ORDERED: fentaNYL 50 MCG/ML SDV ONE (07:18)
[2022-11-21 09:21] VITALS: BP 138/65; PULSE 61
== END 2022-11-21 09:20 | disposition home or self-care (01) ==
LOC: JP.SDS 05:59
PROVIDERS: ATTEND Student in an Organized Health Care Education/Training Program
DX: K29.50 Unspecified chronic gastritis without bleeding (principal); K29.80 Duodenitis without bleeding; K31.A0 Gastric intestinal metaplasia, unspecified; K22.70 Barrett's esophagus without dysplasia; K22.10 Ulcer of esophagus without bleeding; K21.00 Gastro-esophageal reflux disease with esophagitis, without bleeding; E11.9 Type 2 diabetes mellitus without complications; E78.00 Pure hypercholesterolemia, unspecified; Z95.5 Presence of coronary angioplasty implant and graft
CPT/HCPCS: 43239; 88305; 93005; J2704; J3010; J7120